=== PATIENT | female | born 1955 | race Caucasian/White ===

== ENCOUNTER 2023-02-01 07:00 | Outpatient (CLI) | payer MEDICARE ==
--- NOTE | 2023-02-02 12:44 | XRAY Report ---
PROCEDURE: Ankle 3 View RT INDICATIONS: OPEN WOUND OF RIGHT ANKLE TECHNIQUE: 3 views of the ankle were acquired. COMPARISON: None. FINDINGS: Bones: No fractures or dislocations. Ankle mortise is normally aligned. No suspicious bony lesions . Soft tissues: No tibiotalar joint effusion. Achilles tendon appears normal. There is a soft tissue defect in the medial aspect of the ankle adjacent to the medial malleolus. IMPRESSION: No acute bony abnormality. Reviewed by: Jojo Wilcox MD on 02/02/2023 12:42 PM PDT Approved by: Jojo Wilcox MD on 02/02/2023 12:42 PM PDT Station ID: [id number]
== END 2023-02-01 23:59 | disposition home or self-care (01) ==
LOC: DI.S 07:00
PROVIDERS: ATTEND Physician Assistant
DX: S91.001A Unspecified open wound, right ankle, initial encounter (principal)